=== PATIENT | male | born 1990 | race Caucasian/White ===

== ENCOUNTER 2018-03-01 20:13 | Emergency (ER) | payer BC, OTHER ==
[2018-03-01 20:21] VITALS: BP 125/75; PULSE 82; TEMP 98; BMI 36.1
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
== END 2018-03-01 21:02 | disposition home or self-care (01) ==
LOC: JERFT 20:13
DX: S39.012A Strain of muscle, fascia and tendon of lower back, initial encounter (principal); V43.52XA Car driver injured in collision with other type car in traffic accident, initial encounter; Y92.414 Local residential or business street as the place of occurrence of the external cause; Y93.89 Activity, other specified; Y99.8 Other external cause status
CPT/HCPCS: 99281-25

== ENCOUNTER 2021-11-18 11:53 | Emergency (ER) | payer OTHER ==
[2021-11-18 12:07] VITALS: BP 108/70; PULSE 95; TEMP 98.2; BMI 35.4
[2021-11-18] MEDS ORDERED: IBUPROFEN 600 MG TABLET (FP) PO ONE ×2 (14:15→14:17)
== END 2021-11-18 14:22 | disposition home or self-care (01) ==
LOC: JERFT 11:53
DX: M54.50 Low back pain, unspecified (principal); V89.2XXA Person injured in unspecified motor-vehicle accident, traffic, initial encounter
CPT/HCPCS: 99283-25